=== PATIENT | female | born 1970 | race Caucasian/White ===

== ENCOUNTER 2024-04-13 19:01 | Inpatient (IN) | payer OTHER ==
[~2024-04-13] VITALS: Ht 152.4 cm; Wt 49.0 kg
[2024-04-13] MEDS ORDERED: HALOPERIDOL 5 MG TABLET PO PRN (23:15)
[2024-04-13] MEDS ORDERED: LORazepam 2 MG TABLET PO PRN (23:15)
[2024-04-14 08:15] VITALS: BP 143/74; PULSE 62; RESP 18; TEMP 97.3; O2SAT 97
[2024-04-14] MEDS ORDERED: MAG HYDROX/ALUMINUM HYD/SIMETH ES 30 ML SUSPENSION UDCUP PO PRN (14:00)
[2024-04-14] MEDS ORDERED: MAGNESIUM HYDROXIDE SUSPENSION 30 ML UDCUP PO PRN (14:00)
[2024-04-14] MEDS ORDERED: IBUPROFEN 600 MG TABLET PO PRN (14:00)
[2024-04-14] MEDS ORDERED: DOCUSATE SODIUM 100 MG CAPSULE PO PRN (14:00)
[2024-04-14] MEDS ORDERED: ONDANSETRON 4 MG TABLET PO PRN (14:00)
[2024-04-14] MEDS ORDERED: LOPERAMIDE HCL 2 MG CAPSULE PO PRN (14:00)
[2024-04-14] MEDS ORDERED: CloNIDine HCL 0.1 MG TABLET PO PRN (14:00)
[2024-04-14] MEDS ORDERED: ALBUTEROL SULFATE HFA 90 MCG/PUFF 8 GM INHALER IH PRN (14:00)
[2024-04-14] MEDS ORDERED: BENZOCAINE/MENTHOL LOZENGE PO PRN (14:00)
[2024-04-14] MEDS ORDERED: PETROLATUM,WHITE 28 GM JELLY TP PRN (14:00)
[2024-04-14] MEDS ORDERED: ACETAMINOPHEN 325 MG TABLET PO PRN (14:00)
[2024-04-14] MEDS ORDERED: BACITRACIN 28 GM OINTMENT TP PRN (14:00)
[2024-04-14] MEDS ORDERED: OMEPRAZOLE 20 MG CAPSULE PO PRN (14:00)
[2024-04-14 20:27] VITALS: BP 135/79; PULSE 80; RESP 16; TEMP 97.2; O2SAT 100
[2024-04-14] MEDS: ZOLPIDEM TARTRATE 10 MG TABLET PO PRN (20:30)
[2024-04-15 09:02] VITALS: BP 140/85; PULSE 72; RESP 16; TEMP 97; O2SAT 97
[2024-04-15 20:04] VITALS: BP 140/75; PULSE 65; RESP 17; TEMP 97
[2024-04-15] MEDS: MELATONIN 5 MG TABLET PO SCH (21:04)
[2024-04-15] MEDS: MIRTAZAPINE 15 MG TABLET PO SCH (21:05)
[2024-04-16 08:30] VITALS: BP 149/82; PULSE 74; RESP 16; TEMP 97.9; O2SAT 98
[2024-04-16] MEDS ORDERED: MIRT-89 PO (12:08)
[2024-04-16] MEDS ORDERED: MELA5TAB40 PO (12:08)
== END 2024-04-16 17:51 | disposition home or self-care (01) | DRG 885 ==
LOC: B2X 23:23 → UNDOADMIN 23:23 → B3A 04-14 05:40 → B2X 04-14 05:40 → B3A 04-14 08:05 → B2X 04-14 08:05
PROVIDERS: ADMIT Psychiatry & Neurology Psychiatry; ATTEND Psychiatry & Neurology Psychiatry
PROC: GZHZZZZ Group Psychotherapy (ICD-10-PCS; principal; 2024-04-14)
PROC: GZ51ZZZ Individual Psychotherapy, Behavioral (ICD-10-PCS; 2024-04-14)
DX: F32.2 Major depressive disorder, single episode, severe without psychotic features (principal); R45.851 Suicidal ideations; F41.9 Anxiety disorder, unspecified; G47.00 Insomnia, unspecified; K59.00 Constipation, unspecified
CPT/HCPCS: Z7610

== ENCOUNTER 2024-04-13 22:44 | Emergency (ER) | payer OTHER ==
[~2024-04-13] VITALS: Ht 172.7 cm; Wt 50.0 kg
[2024-04-13 22:47] VITALS: TEMP 97.5
[2024-04-13 23:27] LABS: COVID AG,FIA SOURCE NASAL SWAB
[2024-04-13 23:48] LABS: ANION GAP 6 mmol/L (8-16); CARBON DIOXIDE 31 mmol/L (22-29); CHLORIDE 103 mmol/L (98-107); CREATININE 0.81 mg/dL (0.60-1.30); GLOMERULAR FILTR. RATE CALC > 60 mL/min (>60); GLUCOSE,RANDOM 90 mg/dL (70-110); POTASSIUM 4.1 mmol/L (3.5-5.1); SODIUM SERUM 140 mmol/L (136-145); UREA NITROGEN, BLOOD 19 mg/dL (7-18)
[2024-04-13 23:49] LABS: ALCOHOL, BLOOD (SERUM) < 3 mg/dL (0-10)
[2024-04-13 23:49] LABS: APPEARANCE,URINE CLEAR (CLEAR); BILIRUBIN,URINE NEGATIVE (NEGATIVE); COLOR,URINE LIGHT YELLOW (YELLOW); GLUCOSE, URINE (UA) NEGATIVE (NEGATIVE); KETONES,URINE NEGATIVE (NEGATIVE); LEUKOCYTE ESTERASE ,URINE SMALL (NEGATIVE); NITRATE,URINE NEGATIVE (NEGATIVE); OCCULT BLOOD,URINE NEGATIVE (NEGATIVE); PROTEIN,URINE NEGATIVE (NEGATIVE); SPECIFIC GRAVITIY, URINE 1.023 (1.003-1.030); UROBILINOGEN,URINE <=1.0 mg/dL (<=1.0)
[2024-04-13 23:51] LABS: EOSINOPHILS % (AUTO) 2.6 % (1.0-6.0); HEMATOCRIT 42.9 % (36-46); HEMOGLOBIN 14.1 g/dL (12.0-16.0); LYMPHOCYTES # (AUTO) 2.3 K/uL (1.0-4.8); LYMPHOCYTES % (AUTO) 38.5 % (22.0-44.0); MEAN CORPUSCULAR HEMOGLOBIN 27.9 pg (26.0-34.0); MEAN CORPUSCULAR HGB CONC 32.9 G/dL (31.0-37.0); MEAN CORPUSCULAR VOLUME 85 fL (80-100); MONOCYTES # (AUTO) 0.5 K/uL (0.1-1.0); MONOCYTES % (AUTO) 8.8 % (2.0-9.0); NEUTROPHILS # (AUTO) 2.9 K/uL (1.8-7.7); NEUTROPHILS % (AUTO) 49.1 % (40.0-70.0); PLATELET COUNT (AUTO) 302 K/uL (150-450); RED BLOOD CELL COUNT(AUTO) 5.05 MIL/uL (4.00-5.20); RED CELL DISTRIBUTION WIDTH 16.4 % (11.5-14.5); WHITE BLOOD COUNT (AUTO) 5.9 K/uL (4.5-11.0)
[2024-04-13 23:54] LABS: AMPHET/METH SCREEN,URINE NEGATIVE (NEGATIVE); BARBITURATE SCREEN, URINE NEGATIVE (NEGATIVE); BENZODIAZEPINES SCREEN,URINE NEGATIVE (NEGATIVE); CANNABINOID SCREEN,URINE NEGATIVE (NEGATIVE); COCAINE SCREEN,URINE NEGATIVE (NEGATIVE); METHADONE SCREEN, URINE NEGATIVE (NEGATIVE); OPIATE SCREEN,URINE NEGATIVE (NEGATIVE); PHENCYCLIDINE SCREEN,URINE NEGATIVE (NEGATIVE)
[2024-04-13 23:59] LABS: SARS-COV2 (COVID) ANTIGEN,FIA Negative (Negative)
[2024-04-14 00:03] LABS: ALCOHOL, URINE DRUG SCREEN NEGATIVE (NEGATIVE)
[2024-04-14 00:05] LABS: BACTERIA,URINE None Seen /HPF (None Seen); RBC,URINE None Seen /HPF (0-2); SQUAMOUS EPITHELIAL CELL,UR Few /LPF (None Seen); WBC,URINE 0-2 /HPF (0-5)
[2024-04-14 05:46] VITALS: BP 124/78; PULSE 55; RESP 18; O2SAT 98
== END 2024-04-14 07:00 ==
LOC: EMS 22:46
DX: R45.851 Suicidal ideations (principal); Z00.8 Encounter for other general examination; Z20.822 Contact with and (suspected) exposure to COVID-19
CPT/HCPCS: 99285; 87426; 80048; 81001; 84703; 85025; 36415; 80307; G0480